=== PATIENT | female | born 1955 | race Caucasian/White ===

== ENCOUNTER 2017-06-24 07:16 | Emergency (ER) | payer BC, OTHER ==
--- NOTE | 2017-06-24 12:20 | CT ---
CT OF THE BRAIN WITHOUT CONTRAST: Date: 06/24/[address] shows normal sized ventricles with no shift. No intracranial bleeding, mass, or sign o f stroke found. There is good green-white distinction. The calvarium appears normal and the visible pa ranasal sinuses and mastoid air cells are clear. IMPRESSION: No acute intracranial finding. POS: [facility]
--- NOTE | 2017-06-24 12:50 | CT ---
CT OF THE CERVICAL SPINE WITHOUT CONTRAST: DATE: 06/24/17. FINDINGS: Spiral CT of the cervical spine was done for evaluation of weakness and numbness. Axial slices were acquired then coronal and sagittal reconstructions were seen. No fracture or area of bony destruction was seen at any cervical level. There is loss of the normal cervical lordosis, which may be due to muscle spasm. There is very minimal anterolisthesis of C3 on 4, C4 on 5, and C5 on 6. This can be caused by the straightening of the spine alone, though degenera tive facet changes can also contribute. The patient has disk space narrowing at C6-C7 with prominent anterior osteophytes there. The C1 to dense distance is normal and the soft tissues are normal in t hickness. Findings by level follow: C1-C2: No significant findings. C2-C3: Some facet arthritis on the left. No significant findings otherwise. C3-C4: Severe facet arthritis bilaterally, left more than right. Sever left foraminal stenosis. Mi ld right foraminal stenosis. C4-C5: Severe bilateral facet arthritis. Severe right foraminal stenosis. C5-C6: Bilateral facet arthritis, severe on the right. Severe right foraminal stenosis and moderate left foraminal stenosis. C6-C7: Moderate bilateral foraminal stenosis. There is a suggestion of a far lateral disk fragment on the left side at this level. C7-T1: Some facet arthritis, but no acute findings. T1-T2: No acute findings. T2-T3: No acute findings. Lung apices are clear. The soft tissues of the neck were unremarkable. IMPRESSION: Severe facet arthritis throughout, generalized worse on the right than the left. Multilevel foramina l stenosis, worst on the right than the left. No central canal stenosis of significance was detected . POS: [facility]
== END 2017-06-24 08:38 | disposition home or self-care (01) ==
LOC: BURERS 07:16
DX: G62.9 Polyneuropathy, unspecified (principal); I10 Essential (primary) hypertension; E78.00 Pure hypercholesterolemia, unspecified; E03.9 Hypothyroidism, unspecified; Z79.899 Other long term (current) drug therapy
CPT/HCPCS: 70450; 72125

== ENCOUNTER 2017-12-12 15:29 | Outpatient (CLI) | payer OTHER ==
--- NOTE | 2017-12-12 18:49 | RAD ---
RIGHT FOOT THREE VIEWS: 12/12/17 Periosteal reaction is prominent along the second and fourth metatarsal shafts. I am doubtful that th is is related to a current injury, unless the injury was a week or more old. No gross acute fractures were identified. Some mild soft tissue swelling is suggested dorsally. IMPRESSION: Periosteal reaction in the metatarsals as described, more likely chronic or age related change than a cute. Correlate with clinical exam and history. POS: [facility]
== END 2017-12-12 15:30 | disposition home or self-care (01) ==
LOC: BURRAD 15:29
PROVIDERS: ATTEND Family Medicine
DX: S90.31XA Contusion of right foot, initial encounter (principal)

== ENCOUNTER 2020-07-10 11:11 | Outpatient (CLI) | payer BC | END 2020-07-10 11:12 | disposition home or self-care (01) | LOC: HPCALD 11:11 | PROVIDERS: ATTEND Family Medicine | DX: E78.00 Pure hypercholesterolemia, unspecified (principal) | CPT/HCPCS: 36415; 80061 ==